=== PATIENT | female | born 1985 | race Caucasian/White ===

== ENCOUNTER 2016-07-31 16:04 | Emergency (ER) | payer MEDICAID ==
[2016-07-31 17:04] VITALS: BP 131/81
--- NOTE | 2016-07-31 18:03 | EDM.PDOC ---
ED HPI - General Source: Reports: Patient, Family, RN notes reviewed History Limitations: Reports: No limitations <Cheng Ma - Last Filed: 07/31/16 17:59> <Ludwin Han - Last Filed: 07/31/16 20:38> - General Chief Complaint: DISABILITY ADVOCATE Problem Stated Complaint: VAGINAL DISCHARGE Time Seen by Provider: 07/31/16 17:59 - History of Present Illness INITIAL COMMENTS - FREE TEXT/NARRATIVE: 31-year-old female presents emergency department today with vaginal discharge she describes clear fluid as well as her blood she believes she is about 17 weeks 5 days she has not had initial OB visit she has 3 living children and states 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 Denies any other symptoms (Cheng Ma) - Related Data Allergies/ADRs: Allergies Allergy/AdvReac Type Severity Reaction Status Date / Time adhesive tape Allergy Rash Verified 07/31/16 17:18 ethinyl estradiol Allergy Rash Verified 07/31/16 17:18 [From Seasonale contraceptive] levonorgestrel Allergy Rash Verified 07/31/16 17:18 [From Seasonale contraceptive] nickel Allergy Hives Verified 07/31/16 17:18 Home Meds: Home Meds NK [No Known Home Meds] 07/31/16 [History] Past Medical History DISABILITY ADVOCATE History: Reports: , Spontaneous Musculoskeletal History: Reports: Fracture Psychiatric History: Reports: ADHD, Anxiety, Depression, Other (see below) Other Psychiatric History: personality disorder - Past Surgical History GI Surgical History: Reports: Cholecystectomy Musculoskeletal Surgical History: Reports: Other (see below) Other Musculoskeletal Surgeries/Procedures:: pin in hip after dislocation <Cheng Ma - Last Filed: 07/31/16 17:59> Social & Family History - Tobacco Use Smoking Status *Q: Light Tobacco Smoker Years of Tobacco use: 20 Packs/Tins Daily: 0.5 - Recreational Drug Use Recreational Drug Use: No <Cheng Ma - Last Filed: 07/31/16 17:59> ED ROS GENERAL - Review of Systems Review Of Systems: See Below Constitutional: Reports: no symptoms Respiratory: Reports: No Symptoms Cardiovascular: Reports: No symptoms GI/Abdominal: Reports: No symptoms : Reports: irregular menses. Denies: discharge, dysuria <Cheng Ma - Last Filed: 07/31/16 17:59> ED EXAM - Physical Exam Exam: See Below Exam Limited By: No limitations General Appearance: alert, WD/WN, no apparent distress <Cheng Ma - Last Filed: 07/31/16 17:59> <Ludwin Han - Last Filed: 07/31/16 20:38> - Physical Exam Text/Narrative:: Examination presence of nursing staff abdomen is soft and nontender is obese I cannot appreciate the top of the fundus I did take a bedside ultrasound and I could appreciate the uterus but no pole or heart tones were identified vaginal exam the presence of nursing there was no blood in the vaginal vault no lesions noted no clear fluid cervix was identified it is multi-parous no products of conception noted no blood no clear fluid presenting from the cervical os (OfficerCheng) Course <Cheng Ma - Last Filed: 07/31/16 17:59> <Ludwin Han - Last Filed: 07/31/16 20:38> - Vital Signs Last Recorded V/S: Last Vital Signs Temp 98.2 F 07/31/16 17:16 Pulse 98 07/31/16 17:16 Resp 20 07/31/16 17:16 BP 131/81 07/31/16 17:16 Pulse Ox 97 07/31/16 17:16 (OfficerCheng) (Ludwin Han) - Orders/Labs/Meds Orders: (Cheng Ma) Labs: Laboratory Tests 07/31/16 07/31/16 07/31/16 Range/Units 18:00 18:11 18:11 WBC 15.2 H (4.5-11.0) K/uL RBC 4.79 (3.30-5.50) M/uL Hgb 15.1 H (12.0-15.0) g/dL Hct 44.8 (36.0-48.0) % MCV 94 (80-98) fL MCH 32 H (27-31) pg MCHC 34 (32-36) % Plt Count 334 (150-400) K/uL Neut % (Auto) 60 (36-66) % Lymph % (Auto) 31 (24-44) % [place] % (Auto) 6 (2-6) % Eos % (Auto) 2 (2-4) % Baso % (Auto) 1 (0-1) % Sodium 140 (140-148) mmol/L Potassium 3.9 (3.6-5.2) mmol/L Chloride 101 (100-108) mmol/L Carbon Dioxide 27 (21-32) mmol/L Anion Gap 12.3 (5.0-14.0) mmol/L BUN 13 (7-18) mg/dL Creatinine 0.7 (0.6-1.0) mg/dL Est Cr Clr Drug Dosing 101.48 mL/min Estimated GFR (MDRD) > 60 (>60) Glucose 82 (74-106) mg/dL Calcium 9.0 (8.5-10.1) mg/dL HCG, Quant (0-6) mIU/mL Urine Color Yellow Urine Appearance Clear Urine pH 5.0 (4.5-8.0) Ur Specific [place] 1.030 (1.008-1.030) Urine Protein Negative (NEGATIVE) mg/dL Urine Glucose (UA) Normal (NEGATIVE) mg/dL Urine Ketones Negative (NEGATIVE) mg/dL Urine Occult Blood Moderate (NEGATIVE) Urine Nitrite Negative (NEGATIVE) Urine Bilirubin Negative (NEGATIVE) Urine Urobilinogen Normal (NORMAL) mg/dL Ur Leukocyte Esterase Negative (NEGATIVE) Urine RBC 5-10 H (0-5) Urine WBC 0-5 (0-5) Ur Epithelial Cells Few Amorphous Sediment Not seen Urine Bacteria Moderate Urine Mucus Many // Range/Units 18:11 WBC (4.5-11.0) K/uL RBC (3.30-5.50) M/uL Hgb (12.0-15.0) g/dL Hct (36.0-48.0) % MCV (80-98) fL MCH (27-31) pg MCHC (32-36) % Plt Count (150-400) K/uL Neut % (Auto) (36-66) % Lymph % (Auto) (24-44) % [place] % (Auto) (2-6) % Eos % (Auto) (2-4) % Baso % (Auto) (0-1) % Sodium (140-148) mmol/L Potassium (3.6-5.2) mmol/L Chloride (100-108) mmol/L Carbon Dioxide (21-32) mmol/L Anion Gap (5.0-14.0) mmol/L BUN (7-18) mg/dL Creatinine (0.6-1.0) mg/dL Est Cr Clr Drug Dosing mL/min Estimated GFR (MDRD) (>60) Glucose (74-106) mg/dL Calcium (8.5-10.1) mg/dL HCG, Quant 0 (0-6) mIU/mL Urine Color Urine Appearance Urine pH (4.5-8.0) Ur Specific [place] (1.008-1.030) Urine Protein (NEGATIVE) mg/dL Urine Glucose (UA) (NEGATIVE) mg/dL Urine Ketones (NEGATIVE) mg/dL Urine Occult Blood (NEGATIVE) Urine Nitrite (NEGATIVE) Urine Bilirubin (NEGATIVE) Urine Urobilinogen (NORMAL) mg/dL Ur Leukocyte Esterase (NEGATIVE) Urine RBC (0-5) Urine WBC (0-5) Ur Epithelial Cells Amorphous Sediment Urine Bacteria Urine Mucus (Ludwin Han) - Re-Assessments/Exams Free Text/Narrative Re-Assessment/Exam: 07/31/16 18:55 Labs returned reassuring, however the quantitative beta hCG was 0. I explained to the patient and her that there was no active currently and hasn't been a for at least a few weeks. She can expect a menstrual cycle in the near future and she can return anytime if worsening or concerns. ( Ludwin Han) Departure <TerezarCheng - Last Filed: 07/31/16 17:59> - Departure Time of Disposition: 19:07 Condition: good <Ludwin Han - Last Filed: 07/31/16 20:38> - Departure Disposition: Home, Self-Care 01 Clinical Impression: Vaginal discharge Instructions: Pelvic Exam Referrals: PCP,None [Primary Care Provider] - Forms: ED Department Discharge Care Plan Goals: Return fi worsening or concerns.
== END 2016-07-31 19:07 | disposition home or self-care (01) ==
LOC: JP.ED 16:04
DX: N89.8 Other specified noninflammatory disorders of vagina (principal); F41.8 Other specified anxiety disorders; F17.210 Nicotine dependence, cigarettes, uncomplicated; Z88.8 Allergy status to other drugs, medicaments and biological substances
CPT/HCPCS: 36415; 80048; 81001; 84702; 85025; 99282; 99284

== ENCOUNTER 2017-07-26 12:08 | Emergency (ER) | payer MEDICAID ==
[2017-07-26] MEDS ORDERED: Sodium Chloride 0.9% 1,000 ML IV SCH (13:30)
--- NOTE | 2017-07-26 15:04 | EDM.PDOC ---
ED HPI GENERAL MEDICAL PROBLEM - General Chief Complaint: Genitourinary Problem Stated Complaint: BLEEDING Time Seen by Provider: 07/26/17 12:30 Source of Information: Reports: Patient, Family History Limitations: Reports: No Limitations - History of Present Illness INITIAL COMMENTS - FREE TEXT/NARRATIVE: pt arrived with heavy vaginal bleeding. She Had a normal 2 week history of her regular period, 1 week later she developed pain i heavy bleeding and she has been bleeding now for 6 days. She is passing alot of clots. Onset: Gradual Duration: Day(s): Location: Reports: Other ( heavy vag bleeding. ) Associated Symptoms: Reports: No Other Symptoms ABDOMINAL CRAMPING Pain Score (Numeric/FACES): 5 - Related Data Allergies Allergy/AdvReac Type Severity Reaction Status Date / Time adhesive tape Allergy Rash Verified 07/26/17 12:24 ethinyl estradiol Allergy Rash Verified 07/26/17 12:24 [From Seasonale contraceptive] levonorgestrel Allergy Rash Verified 07/26/17 12:24 [From Seasonale contraceptive] nickel Allergy Hives Verified 07/26/17 12:24 Home Meds: Home Meds Amphetamine/Dextroamphetamine [Adderall] 20 mg PO BID 07/26/17 [History] FLUoxetine HCl [Prozac] 40 mg PO BID 07/26/17 [History] OXcarbazepine [Trileptal] 40 mg PO BID 07/26/17 [History] Past Medical History [employer] History: Reports: , Spontaneous Musculoskeletal History: Reports: Fracture Neurological History: Reports: Migraines Psychiatric History: Reports: ADHD, Anxiety, Depression Other Psychiatric History: personality disorder - Past Surgical History GI Surgical History: Reports: Cholecystectomy Social & Family History - Tobacco Use Smoking Status *Q: Current Every Day Smoker Years of Tobacco use: 5 Packs/Tins Daily: 1 - Recreational Drug Use Recreational Drug Use: No ED ROS GENERAL - Review of Systems Review Of Systems: See Below Constitutional: Reports: No Symptoms HEENT: Reports: No Symptoms Respiratory: Reports: No Symptoms Cardiovascular: Reports: No Symptoms Endocrine: Reports: No Symptoms GI/Abdominal: Reports: No Symptoms : Reports: No Symptoms Musculoskeletal: Reports: No Symptoms Skin: Reports: No Symptoms Neurological: Reports: No Symptoms Psychiatric: Reports: Anxiety ED EXAM, GI/ABD - Physical Exam Exam: See Below Text/Narrative:: pt arrived feeling very weak and shaky. She has had heavy vag bleeding for about 1 week. Earlier in the month she had a normal period and bled for nearly 10 days. Exam Limited By: No Limitations General Appearance: Alert, Mild Distress Ears: Normal TMs Nose: Normal Inspection Throat/Mouth: Normal Inspection Head: Atraumatic Neck: Normal Inspection Respiratory/Chest: No Respiratory Distress Cardiovascular: Regular Rate, Rhythm, Tachycardia GI/Abdominal Exam: Other ( tender in the lower abdoman. ) (Female) Exam: Deferred Rectal (Female) Exam: Deferred Back Exam: Normal Inspection Extremities: Normal Inspection Neurological: Alert, Oriented, Normal Cognition Psychiatric: Normal Affect Course - Vital Signs Last Recorded V/S: Last Vital Signs Temp 36.2 C 07/26/17 12:28 Pulse 56 L 07/26/17 15:05 Resp 16 07/26/17 15:05 BP 113/57 L 07/26/17 15:05 Pulse Ox 98 07/26/17 15:05 - Orders/Labs/Meds Labs: Laboratory Tests 07/26/17 07/26/17 07/26/17 Range/Units 13:30 13:30 14:43 WBC 10.9 (4.5-11.0) K/uL RBC 4.12 (3.30-5.50) M/uL Hgb 12.2 D (12.0-15.0) g/dL Hct 37.1 (36.0-48.0) % MCV 90 (80-98) fL MCH 30 (27-31) pg MCHC 33 (32-36) % Plt Count 371 (150-400) K/uL Neut % (Auto) 57 (36-66) % Lymph % (Auto) 32 (24-44) % [place] % (Auto) 8 H (2-6) % Eos % (Auto) 2 (2-4) % Baso % (Auto) 0 (0-1) % Sodium 141 (140-148) mmol/L Potassium 4.1 (3.6-5.2) mmol/L Chloride 107 (100-108) mmol/L Carbon Dioxide 24 (21-32) mmol/L Anion Gap 10.4 (5.0-14.0) mmol/L BUN 8 (7-18) mg/dL Creatinine 0.8 (0.6-1.0) mg/dL Est Cr Clr Drug Dosing 87.99 mL/min Estimated GFR (MDRD) > 60 (>60) Glucose 118 H (74-106) mg/dL Calcium 8.9 (8.5-10.1) mg/dL Total Bilirubin 0.1 L (0.2-1.0) mg/dL AST 13 L (15-37) U/L ALT 21 (12-78) U/L Alkaline Phosphatase 120 H (46-116) U/L Total Protein 7.2 (6.4-8.2) g/dL Albumin 3.2 L (3.4-5.0) g/dL Globulin 4.0 H (2.3-3.5) g/dL Albumin/Globulin Ratio 0.8 L (1.2-2.2) Urine HCG, Qual Negative Meds: Medications Discontinued Medications Generic Name Dose Route Start Last Admin Trade Name Freq PRN Reason Stop Dose Admin Sodium Chloride 1,000 mls @ 999 mls/hr 07/26/17 13:30 07/26/17 13:53 Normal Saline IV 999 mls/hr ASDIRECTED HARRY Administration - Re-Assessments/Exams Free Text/Narrative Re-Assessment/Exam: 07/26/17 15:14 pt had an US which was neg for any sig findings . Her Hg is 12.6. She did feel somewhat shakey prior to arrival. 07/30/17 18:14 Dr Chente Simmons was consulted and he suggested using premarin 2.5 mg qid today and then 2.5 mg daily after that. Departure - Departure Time of Disposition: 15:15 Disposition: Home, Self-Care 01 Condition: Fair Clinical Impression: Episode of heavy vaginal bleeding - Discharge Information Instructions: Abnormal Uterine Bleeding, [id number] Referrals: PCP,None [Primary Care Provider] - Forms: ED Department Discharge Care Plan Goals: premarin 2.5 mg q6h for the first 24 hours then use 1 tab daily for [address] Briggs in 1 week.
[2017-07-26 15:06] VITALS: BP 113/57
== END 2017-07-26 16:06 | disposition home or self-care (01) ==
LOC: JP.ED 12:08
DX: N93.9 Abnormal uterine and vaginal bleeding, unspecified (principal); F32.9 Major depressive disorder, single episode, unspecified; F41.9 Anxiety disorder, unspecified; F17.210 Nicotine dependence, cigarettes, uncomplicated; Z88.8 Allergy status to other drugs, medicaments and biological substances; Z91.048 Other nonmedicinal substance allergy status
CPT/HCPCS: 36415; 76830; 76856; 80053; 81025; 85025; 96360; 99284; J7040